=== PATIENT | female | born 1950 | race Caucasian/White ===

== ENCOUNTER 2022-11-02 10:02 | Day surgery (SDC) | payer MEDICARE ==
[2022-10-31 12:40] VITALS: BMI 31.8
[~2022-11-02 10:02] MED LIST: Bupivacaine PF 0.5% 30 ML VIAL ONE; CEFAZOLIN 1 GM VIAL ONE; Neomycin-Polymyxin 1 ML AMP ONE
[2022-11-02] MEDS ORDERED: CEFAZOLIN 2 GM VIAL ONE (11:53)
[2022-11-02] MEDS ORDERED: Rocuronium Bromide 10 MG/ML (10ML VIAL) ONE (12:12)
[2022-11-02] MEDS ORDERED: Lidocaine 1% PF 5 ML VIAL ONE (12:12)
[2022-11-02] MEDS ORDERED: PROPOFOL 20 ML ONE (12:12)
[2022-11-02] MEDS ORDERED: Fentanyl 100 MCG/2 ML VIAL ONE (12:12)
[2022-11-02] MEDS ORDERED: Glycopyrrolate 0.2 MG/ML 5 ML SYRINGE ONE (13:06)
[2022-11-02] MEDS ORDERED: Dexamethasone 4 mg/ml Vial ONE (13:28)
[2022-11-02] MEDS ORDERED: Ondansetron PF 4 MG/2 ML Vial ONE ×2 (13:28→15:29)
[2022-11-02] MEDS ORDERED: Ketorolac Tromethamine 30 MG/ML VIAL ONE (13:28)
[2022-11-02] MEDS ORDERED: HYDROmorphone 0.5 MG/0.5 ML SYRINGE ONE ×3 (13:42→14:12)
== END 2022-11-02 15:39 | disposition home or self-care (01) ==
LOC: CSHSDC 10:02
PROVIDERS: ATTEND Podiatrist Foot & Ankle Surgery
PROC: 0QBL0ZZ Excision of Right Tarsal, Open Approach (ICD-10-PCS; principal; 2022-11-02)
DX: Z01.818 Encounter for other preprocedural examination (principal); M25.774 Osteophyte, right foot; M77.31 Calcaneal spur, right foot; M76.61 Achilles tendinitis, right leg; E78.2 Mixed hyperlipidemia; M15.0 Primary generalized (osteo)arthritis; K21.00 Gastro-esophageal reflux disease with esophagitis, without bleeding; J43.8 Other emphysema; E66.9 Obesity, unspecified; Z68.31 Body mass index [BMI] 31.0-31.9, adult; Z90.710 Acquired absence of both cervix and uterus; Z90.722 Acquired absence of ovaries, bilateral; R94.31 Abnormal electrocardiogram [ECG] [EKG]; Z88.8 Allergy status to other drugs, medicaments and biological substances; Z88.2 Allergy status to sulfonamides; Z79.899 Other long term (current) drug therapy; Z87.891 Personal history of nicotine dependence
CPT/HCPCS: C1713; J0690; J1100; J1170; J1885; J2405; J2704; J3010; S0020